=== PATIENT | female | born 1990 | race Caucasian/White ===

== ENCOUNTER 2018-06-25 23:50 | Emergency (ER) | payer MEDICAID ==
[~2018-06-25] VITALS: Ht 162.6 cm; Wt 100.9 kg
[~2018-06-25 23:50] MED LIST: KRILL OIL 1,001 EAC1 PO; ZANTAC150 MG PO
[2018-06-26 00:12] VITALS: Ht 162.6 cm; Wt 100.9 kg
[2018-06-26 01:07] LABS: APPEARANCE CLEAR (CLEAR); BILIRUBIN NEGATIVE (NEGATIVE); COLOR YELLOW (YELLOW); GLUCOSE NEGATIVE (NEGATIVE); HCG URINE NEGATIVE (NEGATIVE); KETONE NEGATIVE (NEGATIVE); NITRITE NEGATIVE (NEGATIVE); PROTEIN NEGATIVE (NEGATIVE); UROBILINOGEN NORMAL (NORMAL)
[2018-06-26 01:10] LABS: BACTERIA FEW /hpf (NONE SEEN); EPITHELIAL CELLS 0-5 /hpf (0-5); RED CELLS - URINE 0-5 /hpf (0-5); WHITE CELLS - URINE 0-5 /hpf (0-5)
[2018-06-26] MEDS ORDERED: MACROBID100 MG PO (01:19)
[2018-06-26 01:33] VITALS: BP 128/87
== END 2018-06-26 01:33 | disposition home or self-care (01) ==
LOC: D.ER 23:50
PROVIDERS: Family Medicine
DX: N39.0 Urinary tract infection, site not specified (principal)

== ENCOUNTER 2019-04-27 22:06 | Emergency (ER) | payer MEDICAID ==
[~2019-04-27] VITALS: Ht 162.6 cm; Wt 104.5 kg
[~2019-04-27 22:06] MED LIST changes: +MACROBID100 MG PO
[2019-04-27 22:43] VITALS: Ht 162.6 cm; Wt 104.5 kg
[2019-04-27] MEDS ORDERED: [UNRECOGNIZED DRUG - REMARK] (22:44)
[2019-04-27] MEDS ORDERED: COREG6.25 MG PO (22:44)
[2019-04-27 23:42] LABS: HEMATOCRIT 42.6 % (36.0-48.0); HEMOGLOBIN 13.3 g/dL (12-16); LYMPHOCYTES 37.2 % (15-50); MCH 26.3 pg (26.0-34.0); MCHC 31.2 g/dL (31.0-37.0); MCV 84.4 fL (80.0-100.0); MEAN PLATELET VOLUME 9.4 fL (7.4-10.4); PLATELET COUNT 356 10x3/uL (130-400); RBC 5.05 10x6/uL (4.00-5.40); RDW 14.1 % (11.5-14.5); WBC 9.1 10x3/uL (4.8-10.8)
[2019-04-27 23:46] LABS: ANION GAP 12.4 mmol/L (8-16); CALCIUM 9.1 mg/dL (8.5-10.1); CARBON DIOXIDE 29.6 mmol/L (21.0-32.0); CREATININE - SERUM 1.2 mg/dL (0.6-1.3)
[2019-04-28 00:01] LABS: ALBUMIN 3.8 g/dL (3.4-5.0); BILIRUBIN - TOTAL 0.18 mg/dL (0.2-1.3); PROTEIN - SERUM 8.2 g/dL (6.4-8.2)
[2019-04-28 00:14] LABS: HCG URINE NEGATIVE (NEGATIVE)
[2019-04-28 00:34] LABS: APPEARANCE HAZY (CLEAR); BILIRUBIN NEGATIVE (NEGATIVE); COLOR YELLOW (YELLOW); GLUCOSE NEGATIVE (NEGATIVE); KETONE NEGATIVE (NEGATIVE); NITRITE NEGATIVE (NEGATIVE); PROTEIN NEGATIVE (NEGATIVE); SPECIFIC GRAVITY 1.015 (1.005-1.020); UROBILINOGEN NORMAL (NORMAL)
[2019-04-28 00:35] LABS: RED CELLS - URINE 0-5 /hpf (0-5); WHITE CELLS - URINE 0-5 /hpf (NEGATIVE)
[2019-04-28 00:36] LABS: BACTERIA FEW /hpf (NEGATIVE); EPITHELIAL CELLS 0-5 /hpf (0-5)
[2019-04-28 03:21] VITALS: BP 148/92
== END 2019-04-28 03:16 | disposition home or self-care (01) ==
LOC: D.ER 22:06
PROVIDERS: Family Medicine
DX: E28.2 Polycystic ovarian syndrome (principal); R10.2 Pelvic and perineal pain; I10 Essential (primary) hypertension